=== PATIENT | female | born 1960 | race Hispanic/Latino ===

== ENCOUNTER 2017-10-11 09:34 | Emergency (ER) | payer OTHER ==
[2017-10-11 09:53] VITALS: RESP 18; TEMP 98.4
--- NOTE | 2017-10-11 10:21 | C.PDOC ---
History Of Present Illness 56 year old female patient with hx of osteoporosis presents to the ER with c/o upper back pain. Patient reports she took her friend's medication with no relief. Patient reports she thinks her back is swollen. Denies weakness, numbness, abdominal pain, fever and chills. Chief Complaint (Nursing): Back Pain History Per: Patient History/Exam Limitations: no limitations Onset/Duration Of Symptoms: Hrs Current Symptoms Are (Timing): Still Present Past Medical History Reviewed: Historical Data, Nursing Documentation, Vital Signs Vital Signs: Last Vital Signs Temp 98.4 F 10/11/17 09:43 Pulse 66 10/11/17 11:16 Resp 18 10/11/17 11:16 BP 119/71 10/11/17 11:16 Pulse Ox 97 10/11/17 11:16 - Medical History PMH: Arthritis, Osteoporosis - [facility] Procedures COLONOSCOPY (01/16/02) ESOPHAGOGASTRODUODENOSCOPY [EGD] W/CLOSED BIOPSY (12/12/01) INJECT/INFUSE NEC (07/07/14) Family History: States: Unknown Family Hx - Social History Hx Alcohol Use: No Hx Substance Use: No - Immunization History Hx Tetanus Toxoid Vaccination: No Hx Influenza Vaccination: No Hx Pneumococcal Vaccination: No Review Of Systems Except As Marked, All Systems Reviewed And Found Negative. Constitutional: Negative for: Fever, Chills Musculoskeletal: Positive for: Back Pain (upper back pain ) Neurological: Negative for: Weakness, Numbness Physical Exam - Physical Exam Appears: Non-toxic, No Acute Distress Skin: Normal Color, Warm, Dry Head: Normacephalic Eye(s): bilateral: Normal Inspection Neck: Normal ROM, Supple Cardiovascular: Rhythm Regular Respiratory: Normal Breath Sounds Gastrointestinal/Abdominal: Soft, No Tenderness Back: No CVA Tenderness, No Vertebral Tenderness, No Decreased ROM, No Muscle Spasm, Paraspinal Tenderness (mid back ), Other (tend left scapula ) Extremity: Normal ROM (x4) Extremity: Bilateral: Atraumatic Neurological/Psych: Oriented x3, Normal Speech ED Course And Treatment O2 Sat by Pulse Oximetry: 96 (RA) Pulse Ox Interpretation: Normal Medical Decision Making Medical Decision Making: Impression: muscle strain Plans: -- Toradol -- Valium Reassess: Patient is resting comfortably. Patient reports she feels better and feels sleepy. Patient remains stable and afebrile. Patient will be discharged home and advised to f/u with PMD in 1-2 days. Disposition - Disposition Referrals: [facility] [facility] [Outside] [facility] [place] [Outside] Disposition: HOME/ ROUTINE Disposition Time: 11:16 Condition: GOOD Prescriptions: Cyclobenzaprine [Cyclobenzaprine HCl] 10 mg PO Q8 #15 tab Ibuprofen [Motrin] 600 mg PO Q6 #20 tab Instructions: Upper Back Pain Forms: [employer] ([place]) - Clinical Impression Clinical Impression: Thoracic back pain - Scribe Statement The provider has reviewed the documentation as recorded by the Scribjimena Ramirez Do Provider Attestation: All medical record entries made by the Scribe were at my direction and personally dictated by me. I have reviewed the chart and agree that the record accurately reflects my personal performance of the history, physical exam, medical decision making, and the department course for this patient. I have also personally directed, reviewed, and agree with the discharge instructions and disposition.
[2017-10-11 11:18] VITALS: BP 119/71; PULSE 66
[2017-10-13 16:21] VITALS: O2SAT 96
== END 2017-10-11 11:17 | disposition home or self-care (01) ==
LOC: C.ER 09:34
DX: M54.6 Pain in thoracic spine (principal)
CPT/HCPCS: 96372; 99283; J1885

== ENCOUNTER 2018-03-09 15:31 | Outpatient (CLI) | payer OTHER | END 2018-03-09 15:32 | disposition home or self-care (01) | LOC: C.DEXAIC 15:31 | DX: M81.0 Age-related osteoporosis without current pathological fracture (principal) ==